=== PATIENT | female | born 1990 | race Two or more races ===

== ENCOUNTER 2020-09-08 11:48 | Outpatient (REF) | payer OTHER, SELFPAY ==
--- NOTE | ~2020-09-08 | XR_ITS ---
EXAMINATION: XR SINUSES CLINICAL INFORMATION: Sinusitis COMPARISON: None TECHNIQUE: 4 FINDINGS: The paranasal sinuses appear grossly clear. No air-fluid levels. No opacification. Midline nasal septum. The mastoid air cells appear aerated. XR/XR sinus min 3V IMPRESSION: The paranasal sinuses appear clear.
== END 2020-09-08 11:49 | disposition home or self-care (01) ==
LOC: HO.XRAY 11:48
PROVIDERS: PCP Internal Medicine; Visit Provider Otolaryngology
DX: J32.9 Chronic sinusitis, unspecified (principal)
CPT/HCPCS: 70220; 87102

== ENCOUNTER 2021-10-12 17:28 | Emergency (ER) | payer OTHER, SELFPAY ==
[2021-10-12 17:58] VITALS: BP 113/55; PULSE 68; RESP 18; TEMP 36.7; O2SAT 98; BMI 18.5
== END 2021-10-12 18:50 | disposition left against medical advice (07) ==
PROVIDERS: Emergency Provider Emergency Medicine; PCP Internal Medicine
DX: R68.84 Jaw pain (principal)
CPT/HCPCS: 99281; 99282

== ENCOUNTER 2025-03-26 09:21 | Emergency (ER) | payer MEDICAID, SELFPAY ==
--- NOTE | ~2025-03-26 | CT_ITS ---
EXAMINATION: CT CERVICAL SPINE WITHOUT CONTRAST CLINICAL INFORMATION: Neck pain after trauma COMPARISON: None available. TECHNIQUE: Axial imaging was performed from the base of the skull through T1 without IV contrast. Coronal and sagittal reformatted images were generated from the original axial data set. ALARA: The examination used one or more of the following radiation dose reduction techniques: Automated exposure control, iterative reconstruction, and/or adjustment of mA and/or KV. DLP: 303 mGY*cm FINDINGS: There is straightening of the cervical lordosis. There is no prevertebral soft tissue swelling. No fracture lines are evident. Disc spaces are preserved. CT/CT cervical spine wo IV con IMPRESSION: There is straightening of the expected cervical lordosis. This can be idiopathic, but can also be related to degenerative change, muscle spasm, or posterior soft tissue injury. Electronically signed by: Santino Cerda MD 03/26/2025 11:00 AM EDT
[2025-03-26 09:32] VITALS: BP 155/74; PULSE 74; RESP 16; TEMP 36.9; O2SAT 98; BMI 21.8
--- NOTE | 2025-03-26 09:33 | ED_ITS ---
HPI - General Adult General Chief complaint: Neck Pain/Injury Stated complaint: Neck Spinal Pain Numbness in Hands Time Seen by Provider: 03/26/25 09:33 Source: patient Mode of arrival: ambulatory Limitations: no limitations History of Present Illness ED Provider: Jennifer Acosta PA-C HPI narrative: Patient is a 34 year old assigned female at with no reported medical history presenting to the emergency department today with neck and shoulder pain. Patient states that last night she was brushing her teeth and the way she moved, she felt pain in her neck, and has had pain ever since. Patient denies any dizziness, lightheadedness, abdominal pain, current nausea, vomiting, fever, chills, blurry vision, double vision, loss of vision, chest pain, difficulty breathing, shortness of breath, back pain, night sweats, pain with urination, increased urinary frequency, increased urinary urgency, blood in her urine or stool, syncope or a near syncopal episode, bowel incontinence, bladder incontinence, or any other complaints at this time. Relieving factors: none Exacerbating factors: movement Associated symptoms: denies other symptoms Treatments prior to arrival: none Related Data Previous Rx's ?Medication ?Instructions ?Recorded cyclobenzaprine 5 mg tablet 5 mg PO TID PRN muscle spa sm 7 03/26/25 days #21 tabs prednisone 20 mg tablet 20 mg PO DAILY 7 days #7 tab s 03/26/25 Allergies Allergy/AdvReac Type Severity Reaction Status Date / Time albuterol Allergy Chest Pain Verified 03/26/25 09:35 Review of Systems Constitutional: Constitutional: Reports no additional constitutional complaints, Denies chills, Denies fever(s) and Denies night sweats Eyes: Eyes: Reports no additional eye complaints, Denies blurry vision, Denies change in vision, Denies diplopia, Denies eye discharge, Denies loss of vision and Denies eye pain ENT: Denies dizziness and Reports neck pain Cardiovascular: Cardiovascular: Reports no additional cardiovascular complaints, Denies chest pain, Denies lightheadedness, Denies Loss of Consciousness and Denies dyspnea Respiratory: Respiratory: Reports no additional respiratory complaints and Denies dyspnea Gastrointestinal: Gastrointestinal: Reports no additional gastrointestinal complaints, Denies abdominal pain, Denies melena, Denies hematochezia, Denies change in bowel habits and Denies change in stool character Genitourinary: Genitourinary: Denies hematuria, Denies urinary frequency, Denies dysuria, Denies urinary incontinence, Denies urinary hesitancy and Denies urinary urgency Musculoskeletal: Musculoskeletal: Reports no additional musculoskeletal complaints, Reports neck pain, Denies numbness and Denies tingling Neurologic: Denies dizziness, Denies loss of vision, Denies numbness and Denies tingling Psychiatric: Psychiatric: Reports no additional psychiatric complaints Endocrine: Endocrine: Reports no additional endocrine complaints Hematologic/Lymphatic: Hematologic/Lymphatic: Reports no additional hematologic/lymphatic complaints Allergic/Immunologic: Allergic/Immunologic: Reports no additional allergic/immunologic complaints [facility] Past Medical History Attestation statement: The following information was validated with the patient. Source: old records reviewed and nursing notes reviewed Medical History No known health problems Social History Social History Advance Directives: No Advance Directives Information Provided: Yes Do you have a plan to hurt others: No Plan Physical Exam ED Vital Signs: Vital Signs - 24 hr 03/26/25 09:32 03/26/25 11:15 03/26/25 11:24 Temperature 98.4 F 98.4 F 98.4 F Pulse Rate 74 74 74 Respiratory Rate 16 16 16 Blood Pressure 155/74 H 155/74 H 155/74 H Pulse Oximetry 98 98 98 Oxygen Delivery Method Room Air Room Air Room Air BMI result Body Mass Index 21.8 Const General: cooperative, no acute distress, alert and awake Nutritional Appearance: well nourished Orientation/consciousness: patient oriented x3 HENMT Head: Yes normal to inspection and Yes atraumatic Ears: hearing grossly normal bilaterally and external ears normal General nose exam: Normal external nose present, no nasal discharge noted and no epistaxis Face and sinus: Yes normal facial exam, No abrasion and No laceration Mouth: Normal oral and palatal mucosa present, no drooling and no muffled voice Eyes General: appearance normal, both eyes and all related structures Periorbital: periorbital findings normal Eyelids: Yes eyelids normal Conjunctivae: conjunctivae normal Pupils: Equal, round and reactive pupils present EOM: EOMs intact bilaterally Neck Other: limited neck ROM secondary to pain Neck: Yes normal visual inspection Resp Effort & Inspection: normal respiratory effort and able to speak in complete sentences Neuro General: patient oriented x3, moves all extremities and CN's II-XI intact bilaterally Cranial nerves: Yes Equal, round and reactive pupils present Cognition (Neuro): normal cognition Extrem General: Yes normal to inspection, Yes full ROM and Yes capillary refill normal Psych Appearance: grossly normal Mental Status: mental status grossly normal Affect: normal affect Attitude: cooperative Thought process: Normal thought process present Thought content: Normal thought content present Insight: Good insight present (Psych) Medications Administered Discontinued Medications Generic Name Dose Route Start Last Admin Trade Name Mushtaq PRN Reason Stop Dose Admin Cyclobenzaprine HCl 5 mg 03/26/25 09:38 03/26/25 10:08 Cyclobenzaprine Hcl 5 Mg Tablet PO 03/26/25 09:39 5 mg ONCE ONE Administration Ketorolac Tromethamine 15 mg 03/26/25 09:38 03/26/25 10:08 Ketorolac Tromethamine 15 Mg/Ml Vial IVPUSH 03/26/25 09:39 15 mg ONCE ONE Administration Methylprednisolone Sodium Succinate 60 mg 03/26/25 09:38 03/26/25 10:08 Methylprednisolone Sod Succ 125 Mg/2 Ml Vial IVPUSH 03/26/25 09:39 60 mg ONCE ONE Administration Medical Decision Making Medical Decision Making MDM Narrative: Patient is a 34 year old assigned female at with no reported medical history presenting to the emergency department today with neck and shoulder pain. Patient's physical exam was as noted in the physical exam portion of this note. Patient's CT c-spine showed no acute bony process but did show evidence of a muscle spasm which is consistent with the patient's current presentation. I explained my physical exam findings as well as all test results to the patient. I answered all questions asked by the patient. Patient received IV Toradol, Solu-medrol, and PO flexeirl which, upon re-evaluation, she stated it helped her pain significantly - her neck ROM increased greatly. I stressed the importance of the patient taking her medication as directed (either prescribed or as the over the counter packaging recommends). I stressed the importance of the patient following up with her primary care provider. I stressed the importance of the patient returning to the emergency department immediately if her symptoms were to worsen or if she were to develop any dizziness, shortness of breath, difficulty breathing, chest pain, blurry vision, loss of vision, nausea, vomiting, abdominal pain, fever, chills, back pain, or any other complaints. Patient verbalized agreement and understanding with this treatment plan and discharge. Differential Diagnosis Differential Diagnoses: The differential diagnosis associated with the presentation includes Muscle spasm Torticollis Cervical spasm Cervical strain Admission/Observation Consideration of admission/observation: Escalation of care including admission/observation considered Patient would have been admitted to the hospital had her work up had any findings where hospital admission was appropriate and her clinical presentation warranted hospital admission. Independent Interpretation I performed an independent interpretation of an: CT Scan Interpretation: My interpretation is in agreement with the radiologist's impression of this imaging study. Report Number: [id number]: Total DLP = 303.00 mGy-cm EXAMINATION: CT CERVICAL SPINE WITHOUT CONTRAST CLINICAL INFORMATION: Neck pain after trauma COMPARISON: None available. TECHNIQUE: Axial imaging was performed from the base of the skull through T1 without IV contrast. Coronal and sagittal reformatted images were generated from the original axial data set. ALARA: The examination used one or more of the following radiation dose reduction techniques: Automated exposure control, iterative reconstruction, and/or adjustment of mA and/or KV. DLP: 303 mGY*cm FINDINGS: There is straightening of the cervical lordosis. There is no prevertebral soft tissue swelling. No fracture lines are evident. Disc spaces are preserved. CT/CT cervical spine wo IV con IMPRESSION: There is straightening of the expected cervical lordosis. This can be idiopathic, but can also be related to degenerative change, muscle spasm, or posterior soft tissue injury. Electronically signed by: Santino Cerda MD 03/26/2025 11:00 AM EDT Dictated By: Santino Cerda MD Signed By: Electronically signed by Santino Cerda MD 03/26/25 1100 Radiology Impression Discussion of test interpretation with radiology: I have reviewed the radiologist's reading. Prescription Management I considered prescription management with: Pain Medication (patient prescribed pain medication for her muscle spasm / cervical strain) Discharge Plan Discharge Clinical Impression: Strain of neck muscle, Muscle spasm Patient Disposition: Home, Self-Care Instructions: Cervical Sprain (ED), Muscle Spasm (ED) Additional Instructions: Your CT scan of the neck showed evidence of a muscle spasm. IF you are prescribed home medications and/or you are taking over the counter medications at home - it is very important you continue to do so as prescribed / directed unless told otherwise. Follow up with your primary care provider. Return to the emergency department immediately if your symptoms worsen or if you develop any numbness, tingling, dizziness, shortness of breath, difficulty breathing, chest pain, blurry vision, loss of vision, nausea, vomiting, abdominal pain, fever, chills, back pain, or any other complaints. Please see the information below about our Patient Portal. If you are not yet enrolled in the [facility] Patient Portal, you will receive an enrollment email invitation following your visit to any [facility] setting. You may also self-enroll in the Patient Portal by visiting our website: [email or web address] The following information is required to access the Patient Portal: - Your [facility] [place] Number - Your personal home email address (must match what is in your electronic medical record, Registration staff can assist with this) - Name - Date of Capabilities of the Patient Portal: - Message some providers - View upcoming appointments - Access your health summary, medical history, and visit history - View current conditions and allergies - View procedure and lab results - View your medications, including guidelines, side effects, and precautions - Complete pre-appointment questionnaires requested by your provider - Ready summary reports of your office visits and procedures To access the Patient Portal Mobile Aline, follow these directions: - Search [employer] in the Aline Store or Weblance Store - Download the Aline - Search for [facility] - Enter your login/password Prescriptions: New cyclobenzaprine 5 mg tablet 5 mg PO TID PRN (Reason: muscle spasm) 7 Days Qty: 21 0RF prednisone 20 mg tablet 20 mg PO DAILY 7 Days Qty: 7 0RF Referrals: Real Rojas III, MD [Primary Care Provider, Medical] Stand Alone Forms: Work/School Release Interventions: ED Discharge Assessment Last Done: 03/26/25 11:24 Discharge Date/Time: 03/26/25 11:24 Print Language: Sammarinese
--- OUTSIDE RECORDS SUMMARY | 2025-03-26 10:02 | XMS_ITS ---
Author Name [facility] Organization Unknown Care Team Organization Name Specialty Phone Email Start Date End Fidencio huff [facility] 06/04/2023 03/23/2024 [facility] 06/12/2022 4
--- OUTSIDE RECORDS SUMMARY | 2025-03-26 10:02 | XMS_ITS | Clinical Summary ---
Author Organization [facility] Address [address] [place] [address] Care Team Providers Care Overlock Sleeve Setter Name Role Phone Nadia Anderson MD Primary Care Provider [phone] Allergies Active Allergy Reactions Criticality Noted Date Comments Albuterol Palpitations 02/15/2020 Banana 07/24/2024 Fruit (generic) (No reactions) Nardin and banana-oral allergy syndrome Other Runny nose 11/23/2008 seasonal Nardin 11/07/2020 Nardin and banana-oral allergy syndrome Medications VITAMIN A ORAL Take 1 tablet by mouth 1 (one) time each day. Active ERGOCALCIFEROL, VITAMIN D2, ORAL Take 1 tablet by mouth 1 (one) time each day. Active diclofenac (VOLTAREN) 75 mg EC tablet Take 1 tablet (75 mg total) by mouth 2 (two) times a day. 02/27/2024 Active triamcinolone (NASACORT) 55 mcg nasal inhaler 55 mcg by Nasal route daily. 08/31/2020 Active beclomethasone dipropionate (Qvar RediHaler) 80 mcg/actuation HFA aerosol breath activated inhaler INHALE 2 PUFFS INTO THE LUNGS TWICE DAILY 03/27/2021 Active Active Problems Problem Noted Date Diagnosed Date Syncope and collapse 07/24/2024 Shortness of breath 12/20/2020 Overview (07/24/2024): Last Assessment & Plan: We did discuss her shortness of breath. Again her stress test and echo were normal. Her CT of her chest was normal. She had no evidence of any structural abnormalities or pulmonary embolism. Her PFT's were normal. We did discuss that she has several environmental allergens and it could be allergies that are playing a role in this. She has no evidence of a cardiomyopathy, valvular abnormality or congenital defect that could be causing the symptoms. Conjunctivitis, allergic, bilateral 11/07/2020 Other chest pain 11/07/2020 Overview (07/24/2024): Last Assessment & Plan: We did discuss her chest discomfort. This is atypical in nature. This sounds musculoskeletal. It sharp stabbing pain with some mild pressure which comes at rest. She has no exertional symptoms. She has no symptoms when she is exercising. Her pain is better at this point. She has been taking vitamin D. I have encouraged her to increase her fluid hydration. We did discuss that with musculoskeletal pain vitamin D and hydration can help. If this worsens or she starts having exertional symptoms she will let us know. I did reassure her that her echo and stress test were normal. 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 Overview (07/24/2024): R knee since 06/10, L knee - Dr Campos/Alexa MRI: OCD lesion of the MFC, fragmentation L Knee arthroscopy Encounters Date Type Department Care Team Description 02/22/2025 Telephone Adult Medicine [address] [id number] Nadia Anderson MD triage (Back pain, pelvic pain, nausea, light urination ) from Last 3 Months Immunizations Name Administration Dates Next Due DTP 10/18/1995, 2,02/24/1991,12/23,1990 [id number] (Pentacel) 2mo to less than 5yo 09/19/1993,02/24/1991,1990,10/17 Hepatitis B Pediatric (Enger ix B; Recombivax HB) to less than 20 yo 02/15/1998,01/11/1998,10/14/1997 MMR, measles mumps and rubel la Live (Priorix; M-M-R II) 12mo and older 10/31/1995,12/21/1991 Meningococcal MCV4P 04/30/2005 OPV 10/18/1995, 2,02/24/1991,12/23,1990 PPD Test 10/31/1995,1991 Td Tetanus diptheria (Tdvax) 7yo and older 04/20/2003 Tdap Tetanus diptheria acell ular pertussis (Boostrix; Adacel) 7yo and older 05/24/2017,08/18/2007 Surgical History Surgery Date Site/Laterality Comments KNEE ARTHROSCOPY PROCEDURE: [place] ARTHROSCOPY AID [place] SPINE&/FX KNEE W/O FIXJ; COMMENT: 04/12 was last one Medical History Medical History Date Comments Effusion of lower leg joint DX:E ffusion of lower leg joint; COMMENT: right medial meniscal tear; Dr. Moiz Perez Syncope and collapse DX:Syncope and collapse; COMMENT: at age 13 and 23, passed out and had to go to ER. 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 DX:Ost eochondritis dissecans; COMMENT: R knee since 06/10 Gail 6-08 Papanicolaou smear of cervix with high grade squamous intraepithelial lesion (HGSIL) 04/03/2013 DX:Papanicolaou smear of cer vix with high grade squamous intraepithelial lesion (HGSIL); COMMENT: Colposcopy 04/03/13 Family History Medical History Relation Name Comments Breast cancer Aunt maternal side greast aunts x 4 all passed from Breast CA within the same month Other: seasonal allergies Brother Thyroid disease Brother thyroid canc er No Known Problems Father pt reports hasnt seen father since a child Other: anxiety Maternal Grandmother sleep apnea-wears cpap Ovarian cancer Maternal Grandmother Asthma Mother Other: seasonal allergies Mother Diabetes Paternal Grandmother stroke, has had a lot of surgeries - because shes old Relation Name Status Comments Aunt Brother Alive Father Alive Maternal Grandmother Alive Mother Alive Paternal Grandmother Alive Social History Tobacco Use Types Packs/Day Years Used Date Smoking Tobacco: Never Smokeless Tobacco: Never Alcohol Use Standard Drinks/Week Comments No 0 (1 standard drink = 0.6 oz pur e alcohol) Comments Unknown Sex and Gender Information Value Date Recorded Sex Assigned at Not on file Legal Sex Female 3:58 PM EST Gender Identity Not on file Sexual Orientation Not on file Obstetrics History Last Filed Vital Signs Vital Sign Reading Time Taken Comments Blood Pressure 98/62 12/11/2023 1:36 PM EDT Pulse 106 12/11/2023 1:36 PM EDT Temperature - - Respiratory Rate - - Oxygen Saturation - - Inhaled Oxygen Concentration - - Weight 54 kg (119 lb) 12/11/2023 1:36 PM EDT Height 162.6 cm (5' 4 ) 12/11/2023 1:36 PM EDT Body Mass Index 20.43 12/11/2023 1:36 PM EDT Plan of Treatment Health Maintenance Due Date Last Done Comments COVID-19 Vaccine (#1) 1995 Hepatitis B Vaccines (4 of 4 - 4-dose series) 03/08/1998 02/15/1998, 01/11/1998, 10/14/1997 Social Influencers of Health Screening 07/14/2022 Depression Screening 08/05/2024 Influenza Vaccine (#1) 2025 Cholesterol Screening (Lipid Panel) 06/16/2025 06/16/2020 Cervical Cancer Screening: HPV 10/06/2025 10/06/2020 DTaP,Tdap,and Td Vaccines (9 - Td or Tdap) 05/24/2027 05/24/2017, 08/18/2007, 04/20/2003, Additional history exists HIB Vaccines Completed 09/19/1993, 02/03, 1990, Additional history exists IPV Vaccines Completed 10/18/1995, 09/05, 06/02/1992, Additional history exists MMR Vaccines Completed 10/31/1995, 12/21/1991 Meningococcal ACWY Vaccine Aged Out 04/30/2005 N o longer eligible based on patient's age to complete this topic HIV Screening Completed 08/21/2021 Hepatitis C Screening Completed 08/21/2021 HPV Vaccines Aged Out No longer eligi ble based on patient's age to complete this topic Hepatitis A Vaccines Aged Out No long er eligible based on patient's age to complete this topic Meningococcal B Vaccine Aged Out No l onger eligible based on patient's age to complete this topic Pneumococcal Vaccine: Pediatrics (0 to 5 Years) and At-Risk Patients (6 to 49 Years) Aged Out No longer eligible based on patient's age to complete this topic RSV Immunization Patients Under 20 months Aged Out No longer eligible based on patient's age to complete this topic Varicella Vaccines Aged Out No longer eligible based on patient's age to complete this topic Procedures Procedure Name Priority Date/Time Associated Diagnosis Comments HEPATITIS C SCREENING Routine 08/21/2021 HIV SCREENING Routine 08/21/2021 HPV Routine 10/06/2020 LIPID PANEL Routine 06/16/2020 from Last 3 Months or Most Recently Relevant to Health Maintenance Results * HIV Screening (08/21/2021) [facility] HIV Screening abstracted [facility] Provider HEALTH MAINTENANCE Final Result * Hepatitis C Screening (08/21/2021) [facility] Hepatitis C Screening abstracted [facility] Provider HEALTH MAINTENANCE Final Result * Cervical Cancer Screening: HPV (10/06/2020) [facility] Cervical Cancer Screening: HPV negative, abstracted [facility] Provider HEALTH MAINTENANCE Final Result * Lipid panel (06/16/2020) [facility] LDL/HDL Ratio 3 0 - 4 Triglycerides 108 0 - 150 mg/dL Cholesterol 181 0 - 200 mg/dL HDL 66 >=40 mg/dL LDL Cholesterol 94 0 - 100 mg/dL Blood Venous blood specimen / Unknown Historical Provider LAB BLOOD ORDERABLES Cyndi l Result from Last 3 Months or Most Recently Relevant to Health Maintenance Care Teams Overlock Sleeve Setter Relationship Specialty Start Date End Date Nadia Anderson MD PCP - General 07/03/23
[2025-03-26 11:15] VITALS: BP 155/74; PULSE 74; RESP 16; TEMP 36.9; O2SAT 98
[2025-03-26 11:24] VITALS: BP 155/74; PULSE 74; RESP 16; TEMP 36.9; O2SAT 98
== END 2025-03-26 11:24 | disposition home or self-care (01) ==
PROVIDERS: Emergency Provider Emergency Medicine; PCP Internal Medicine
DX: S13.9XXA Sprain of joints and ligaments of unspecified parts of neck, initial encounter (principal); M62.838 Other muscle spasm; R20.0 Anesthesia of skin; X58.XXXA Exposure to other specified factors, initial encounter; Y93.9 Activity, unspecified; Y92.002 Bathroom of unspecified non-institutional (private) residence as the place of occurrence of the external cause
CPT/HCPCS: 72125; 96374; 96375; 99283; 99284; J1885; J2919

== ENCOUNTER → 2025-03-26 09:38 | Outpatient (BNV) | payer SELFPAY | PROVIDERS: Emergency Provider Emergency Medicine; PCP Internal Medicine; Visit Provider Radiology Diagnostic Radiology | DX: M54.2 Cervicalgia (principal) | CPT/HCPCS: 72125 ==